=== PATIENT | female | born 1985 | race Caucasian/White ===

== ENCOUNTER 2018-11-25 10:30 | Outpatient (CLI) | payer BC ==
--- NOTE | 2018-11-26 14:00 | OP Clinic Progress Note ---
SUBJECTIVE: Celia Cordova is a 33-year-old female who presents with pain in the proximal edge of the right great toenail that has been present since about Spring and has not really gone away. Most recently this last week she began to have some purulence begin to come out of the area. It seems to have improved in the last couple days, however. The patient has not tried a whole lot else at this point except for digging at it herself which has not proven helpful yet. The patient is also concerned whether there may be some fungus in the toenail as it has some discoloration to it. The patient does not admit to any major medical issues and admits a problem with Vicodin which causes an upset stomach, but no antibiotic allergies. She admits a history of having numbing medicine before for dental procedures without any problems. She does not admit to any other health issues and does not admit to any fevers, chills, nausea, vomiting, shortness of breath or chest pain at this time. OBJECTIVE: Vitals: Blood pressure 149/90, heart rate 114, respiration rate 14, temperature 98.7 degrees Fahrenheit, O2 saturation is 99% on room air. Vascular: DP and PT pulses right foot, 2+. Capillary refill time is less than 3 seconds to the toes of the right foot. There is mild edema noted at the proximal edge of the right great toenail at the eponychium area. There is no other edema noted. Dermatologic: There is mild erythema/irritation noted at a slightly prominent eponychium area of the right great toe just at the proximal edge of the nail. There is no purulence noted and nothing with minor palpation is expressed. There is no significant erythema or warmth at all noted and no malodor noted. There are no other skin lesions or concerning areas noted. Musculoskeletal: There is pain on palpation noted only at the eponychium area at the proximal end of the toenail of the right great toe. There is no pain on palpation at the medial or lateral borders. There is no other gross abnormalities noted. Neurologic: Light touch sensation is intact to the toes, right foot. ASSESSMENT AND PLAN: 1. Onychocryptosis of the right hallux, proximal edge. 2. Onychomycosis. The risks and benefits of a procedure to remove the great toenail were discussed as I believe the great toenail needs to come off due to pain in that proximal area. It was encouraged that we only do a temporary procedure in order to let new nail grow in. If there is a fungal component which I believe there is, we can either do Vicks VapoRub daily as once this has healed during the time a new nail grows in to possibly limit the likelihood of onychomycosis again, or we can do blood work and start her on Lamisil and do blood work again chcf through the 3 month course. The patient refuses the Lamisil and would like to do the Vicks VapoRub after she heals from a temporary right great toenail removal. The risks and benefits were discussed that include but are not limited to bleeding and infection. The patient signed the consent and it was placed in the chart. She had no further questions. PROCEDURE #1: Total nail avulsion of the right hallux (temporary). An alcohol swab was utilized to clean the right great toe and it was injected with a 1:1 mix of 1% lidocaine plain and 0.5% Marcaine plain, total 6 mL. Good anesthesia was obtained and the right great toe was cleansed with Betadine prep. The right great toenail was then avulsed in its totality after releasing it from the eponychium and underlying nail bed. The nail was removed easily and hemostasis obtained with pressure. Triple antibiotic ointment and 4x4 gauze and 2x2 gauze and 2-inch Greyson and 1-inch Coban were applied beginning on the great toe and extending onto the distal forefoot to help hold it on. The patient was happy with the procedure and the visit today and had no further questions. Instructions were given both verbally and written regarding toe wound instructions going forward. Return to the clinic in 1 week for follow-up to make sure she is healing well. If she is having no problems whatsoever and would like to cancel at that point in time, obviously she can do that. Otherwise, I will see her in a week in the outpatient clinic for follow-up. The patient will continue her Vicks VapoRub once it is all the way healed. She knows that she needs to wait until it is healed. Loebardo [email or web address].[email or web address] (Dictated/Not Signed) Jordin Job#: [id number] MTDD
== END 2018-11-25 11:00 ==
LOC: POD 10:30
PROVIDERS: ATTEND Podiatrist Foot & Ankle Surgery
DX: L60.0 Ingrowing nail (principal); B35.1 Tinea unguium
CPT/HCPCS: 11730; J2001; J3490; A4554